=== PATIENT | male | born 1945 | race Caucasian/White ===

== ENCOUNTER 2024-10-09 09:26 | Outpatient (AMB) | payer MEDICARE, OTHER, SELFPAY ==
--- NOTE | 2024-10-09 09:31 | A.OFFVIS_ITS ---
Vital Signs 10/09/24 09:35 Height 5 ft 6 in Weight 202 lb BMI 32.6 BP 128/84 Blood Pressure Location Rt brachial Position Sitting Pulse 81 Pulse Source Pulse Oximeter Oxygen Delivery Method Room Air Oxygen Flow Rate 98 Intake Visit Reasons: ENP: Gait Intake Note: Patient referred for underlying movement disorder Allergies No Known Allergies Allergy (Verified 10/09/24 09:37) Medication List - Last Reconciled 10/09/24 by Emmy Vila MD allopurinol 300 mg PO DAILY aspirin 81 mg PO DAILY atorvastatin 20 mg PO DAILY carbidopa-levodopa 25-100 mg 2 tabs PO TID empagliflozin (Jardiance) 10 mg PO DAILY lisinopril mg PO metoprolol succinate ER 25 mg PO DAILY mirabegron ER (Myrbetriq) 50 mg PO DAILY tadalafil mg PO tamsulosin 0.8 mg PO DAILY vitamins A,C,G-wkya-zjrknl 4,296 mcg-226 mg-90 mg 1 cap PO BID HPI Comments Details: 79y/o Right handed male comes for evaluation of progressive gait problems, tremors in left leg , abnormal leg movements in sleep.He had right knee replacement 4 years ago and feels he never recovered fully . About 1 year ago he was admitted for sepsis - became weaker . His gait improved but did not reach baseline. He uses a walker now and has had falls in the past - last fall was Apr 2024. ( walking with a cane and fell when he turned ) He also has macular degeneration and is legally blind.No h/o neck or back pain No h/o strokes No head injury .He has h/o atrial fib since his 40s .He started noticing intermittent rare episodes of tremors in his legs ( mostly in left) and mostly at rest. He has vivid dreams , occasional grunting noise, sleep talks , leg movements in sleep.He has excessive daytime fatigue and sleepiness. No change in speech. His memory has mildly declined. He was seen by - started on sinemet 25/100 tid and now 2 tabs tid .He feels improvement in gait and tremors. 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, class 1 HTN (hypertension) Gout CAD (coronary artery disease) Community acquired pneumonia Cardiomyopathy BPH (benign prostatic hyperplasia) Afib Surgical History H/O heart surgery History of prostate surgery H/O knee surgery Hx of colonoscopy Family History Father Diabetes Stroke Mother Macular degeneration Arthritis of right hip Emphysema lung Brother Diabetes Alcoholic Son Anemia Daughter Anemia Social History Alcohol intake: current Comment: wine Patient Tobacco Use Status: Never used Tobacco Physical Exam Vital Signs: Last Vital Signs Pulse 81 10/09/24 09:35 BP 128/84 10/09/24 09:35 Oxygen Delivery Method Room Air 10/09/24 09:35 Oxygen Flow Rate 98 10/09/24 09:35 BMI result Body Mass Index 32.6 Const General: cooperative, healthy appearing, comfortable and no acute distress Nutritional Appearance: average body habitus Orientation/consciousness: patient oriented x3 Eyes Pupils: Equal, round and reactive pupils present Neuro Other: Mild decreased facial expressiona nd blink No tremors Bradykiensia FFM and foot taps decreased higinio Mild cog wheel rigidity - higinio UE Gait- kyphosis , small steps, decreased arm swings higinio General: patient oriented x3, moves all extremities and no focal motor deficits Cranial nerves: Yes Facial sensation intact/muscles of mastication intact, Yes Equal, round and reactive pupils present, Yes Bilaterally intact EOM present, Yes Nystagmus not present, Yes Normal facial strength present and Yes Midline tongue present Cognition (Neuro): normal cognition Motor exam (neuro): 5/5 motor strength present throughout Deep tendon reflexes (DTR's): Right triceps reflex intensity grade: 2+, Left triceps reflex intensity grade: 2+, Rt Biceps (C5, C6): 2+, Left biceps reflex intensity grade: 2+, Right brachioradialis reflex intensity grade: 2+, Left brachioradialis reflex intensity grade: 2+, Right patellar reflex intensity grade: 2+ and Left patellar reflex intensity grade: 2+ Coordination: [id number]-nz-[id number] test normal Assessment & Plan Assessment & Plan (1) Multifactorial gait disorder: Code(s): R26.89 - Other abnormalities of gait and mobility Category: Medical (2) Parkinsonism: Code(s): G20.C - Parkinsonism, unspecified Category: Medical Qualifiers: Parkinsonism type: unspecified Qualified Code(s): G20.C - Parkinsonism, unspecified (3) Snoring: Code(s): R06.83 - Snoring Category: Medical (4) Hypersomnia: Code(s): G47.10 - Hypersomnia, unspecified Category: Medical (5) Nocturnal leg movements: Code(s): R25.8 - Other abnormal involuntary movements Category: Medical Plan Suggested to continue Carbidopa/levodopa 2tabs tid Increase exercise Home PT for gait and balance training Home sleep study to evaluate for sleep apnea. Orders: Orders RT home sleep study 10/09/24 G47.10 - Hypersomnia, unspecified, R06.83 - Snoring, R25.8 - Other abnormal involuntary movements [facility]errals [facility] Referral G20.C - Parkinsonism, unspecified, R26.89 - Other abnormalities of gait and mobility, R29.6 - Repeated falls Coding Level of Care Code New Pt Level 4 (69114) Complex EM visit Add On G2211 Diagnoses Multifactorial gait disorder R26.89 Parkinsonism, unspecified Parkinsonism type G20.C Parkinsonism type: unspecified Snoring R06.83 Hypersomnia G47.10 Nocturnal leg movements R25.8
[2024-10-09 09:35] VITALS: BP 128/84; PULSE 81; BMI 32.6
--- OUTSIDE RECORDS SUMMARY | 2024-10-09 10:22 | XMS_ITS | Continuity of Care Document ---
Author Organization [facility] Address [address] [place] [address]- Care Team Providers Care Patient Scheduling Manager Name Role Phone Yuri Melchor MD Primary Care Physician [phone] Encounter [facility] Date(s): 09/04/24 - 10/04/24 [facility] [address] [place], [place] [address] Encounter Type: Triage Allergies, Adverse Reactions, Alerts No Known Allergies Immunizations Given and Recorded Vaccine Date Status Refusal Reason influenza virus vaccine, inactivated 05/08/24 Slade rded influenza virus vaccine, inactivated 04/17/22 Slade rded influenza virus vaccine, inactivated 04/17/20 Slade rded influenza virus vaccine, inactivated 05/21/18 Slade rded influenza virus vaccine, inactivated 06/14/17 Slade rded influenza virus vaccine, inactivated 04/18/16 Slade rded influenza virus vaccine, inactivated 05/29/15 Slade rded SARS-CoV-2(COVID-19)mRNA-LNP vac(shr754) 05/08/24 Recorded [id number] bivalent booster vax 04/17/22 Recorded SARS-CoV-2 (COVID-19) mRNA-1273 vaccine 11/05/21 R ecorded SARS-CoV-2 (COVID-19) mRNA-1273 vaccine 10/09/20 R ecorded SARS-CoV-2 (COVID-19) mRNA-1273 vaccine 09/11/20 R ecorded zoster vaccine, inactivated 07/20/18 Recorded zoster vaccine, inactivated 12/01/17 Recorded Hepatitis A Adult Vaccine 1 11/17/17 Given Hepatitis A Adult Vaccine 12/16/16 Given Typhoid Vaccine, Inactivated 12/16/16 Given FluLaval (oldterm) 06/07/09 Given Pneumococcal Vaccine (oldterm) 06/05/08 Given Influenza Virus Vaccine (oldterm) 2 06/05/08 Given tetanus-diphtheria toxoids (Td) 04/27/03 Given 1Result Comment: [11/17/2017] hep A #2 2Admin Note: SONOFI PASTEUR given without incident denies col symptoms, denies egg allergy Medications allopurinol 300 mg oral tablet 1, tablet, By Mouth, Daily, # 90 tablet, Refills 2, Maintenance, 12/25/23 10:07:00 PM EDT, Route to Pharmacy Electronically, [id number], 168, cm, 11/04/23 10:13:00 EDT, Height, 93.8, kg, 11/04/23 10:13:00 EDT, Dry Weight Start Date: 12/25/23 Status: Ordered Quantity: 90.0 Unit: tablet Repeat number: 1 aspirin 81 mg oral delayed release tablet 81 mg, 1, tablet, By Mouth, Daily, Refills 0, Maintenance, 11/19/20 6:17:00 AM EDT, Partial fill upon patient request if the prescription is for a schedule II opioid drug. Start Date: 11/19/20 Status: Ordered Repeat number: 1 atorvastatin 20 mg oral tablet 1 tablet = 20 mg, By Mouth, Daily, 0 Refills, Maintenance Start Date: 01/09/19 Status: Ordered Repeat number: 1 carbidopa-levodopa 25 mg-100 mg oral tablet 2 tablet, By Mouth, 3 times a day, # 180 tablet, 0 Refills, Maintenance, 05/02/24 10:46:00 AM EDT, Tablet, Partial fill upon patient request if the prescription is for a schedule II opioid drug. Start Date: 05/02/24 Status: Ordered Quantity: 180.0 Unit: tablet Repeat number: 1 ICaps AREDS 2 oral capsule 1 capsule, By Mouth, 2 times a day, Maintenance, 05/17/23 10:31:00 AM EDT, Capsule, Partial fill upon patient request if the prescription is for a schedule II opioid drug. Start Date: 05/17/23 Status: Ordered Repeat number: 1 Jardiance 10 mg oral tablet 1 tablet = 10 mg, By Mouth, Daily in AM, # 90 tablet, 3 Refills, Maintenance, 06/01/23 4:54:00 PM EDT, Tablet, [facility] #[id number], Partial fill upon patient request if the prescription is for a schedule II opioid drug., 168, cm, 05/21/23 9:12:00 EDT, Height, 96.2, kg, 05/17/23 19:40:00 EDT, Dry Weight Start Date: 06/01/23 Stop Date: 05/26/24 Status: Ordered Quantity: 90.0 Unit: tablet Repeat number: 4 lisinopril 2.5 mg oral tablet 2.5 mg, 1, tablet, By Mouth, Daily, # 90 tablet, Refills 3, Tot. Refills 3, Maintenance, 06/01/23 4:54:00 PM EDT, Route to Pharmacy Electronically, [facility] #[id number], Partial fill upon patient request if the prescription is for a schedule II opioid drug., 168, cm, 05/21/23 9:12:00 EDT, Height, 96.2, kg, 05/17/23 19:40:00 EDT, Dry Weight Start Date: 06/01/23 Stop Date: 05/26/24 Status: Ordered Quantity: 90.0 Unit: tablet Repeat number: 4 metoprolol 25 mg oral tablet, extended release 25 mg, 1, tablet, By Mouth, Daily, # 90 tablet, Refills 3, Tot. Refills 3, Maintenance, 06/30/24 11:54:00 AM EST, Route to Pharmacy Electronically, [facility] #[id number], Partial fill upon patient request if the prescription is for a schedule II opioid drug., 168, cm, 06/30/24 11:33:00 EST, Height, 91, kg, 06/30/24 11:33:00 EST, Dry Weight Start Date: 06/30/24 Status: Ordered Quantity: 90.0 Unit: tablet Repeat number: 4 Tadalafil (Eqv-Cialis) 20 mg oral tablet 1 tablet = 20 mg, By Mouth, Daily, PRN 60 min Prior to sexual activity, Maintenance, 05/17/23 10:29:00 AM EDT, Partial fill upon patient request if the prescription is for a schedule II opioid drug. Start Date: 05/17/23 Status: Ordered Repeat number: 1 tamsulosin 0.4 mg oral capsule 0.4 mg, 1, capsule, By Mouth, Daily, # 30 capsule, Refills 0, Maintenance, 06/05/24 9:22:00 AM EDT,Partial fill upon patient request if the prescription is for a schedule II opioid drug. Start Date: 06/05/24 Status: Ordered Quantity: 30.0 Unit: capsule Repeat number: 1 Problem List Condition Confirmation Course Effective Dates Status H ealth Status Informant Atrial fibrillation Confirmed Active Benign enlargement of prostate Confirmed Active Cardiomyopathy Confirmed Active Community acquired pneumonia Confirmed 05/2008 Active Coronary artery disease Confirmed Active Advice or immunization for travel Confirmed Active Fronto-temporal dementia Confirmed Active Gout Confirmed Active Hypertension Confirmed Active Presence of Watchman left atrial appendage closure device Confirmed Active Obese class I Confirmed Active Parkinsonism Confirmed Active Raynaud's phenomenon Confirmed Active Sensorineural hearing loss, bilateral Confirmed 2002 Active Social History Social History Type Response Smoking Status Never (less than 100 in lifetime) entered on: 05/07/23 Sex Sex Representation Male (finding) Patient Care team information Care Team Personnel Name: Opal Keller RN Position: [facility] RN Member Role: Primary Care Nurse Name: Yuri Melchor MD Position: [facility] Physician - Primary Care Member Role: PCP Address: [address] [place] [address] [facility] [address] Telecom: Name: Beth Rodriguez RN Position: [facility] RN Member Role: Primary Care Nurse Name: Chucky Timmons RN Position: [facility] RN Member Role: Primary Care Nurse Name: Chastity Velasco Position: [facility] Outreach Member Role: [employer] Consult[employer] Physician Name: Teresa De La Torre RN Position: [facility] RN Member Role: Primary Care Nurse Name: Michelle Malhotra RN Position: [facility] RN Member Role: Primary Care Nurse Care Team Related Persons Name: JEFF NEW Name: YONY NEW Name: YONY NEW Insurance Providers Guarantor name: FABIANO SHAQ Health Plan Information #: 1 Payer: MEDICARE PART B OUTPT Member Number: NA Policy Number: NA Group Number: NA Health Plan Information #: 2 Payer: [employer] Member Number: NA Policy Number: NA Group Number: NA
--- OUTSIDE RECORDS SUMMARY | 2024-10-09 10:22 | XMS_ITS | Clinical Summary ---
Author Organization [facility] Address [address] [place] [phone] Phone Care Team Providers Care Potato Peeler Name Role Phone Yuri Melchor MD Primary Care Provider [phone] Allergies No known active allergies Medications allopurinoL (ZYLOPRIM) 300 mg tablet Take 1 Tab by mouth daily. Active aspirin 81 mg EC tablet Take 1 Tab by mouth daily. Active atorvastatin (LIPITOR) 20 mg tablet TAKE 1 TABLET BY MOUTH DAILY 01/27/2024 Active carbidopa-levod opa (SINEMET) 25-100 mg per tablet Take 1 Tablet by mouth 3 times daily. Active empagliflozin (Jardiance) 10 mg tablet TAKE 1 TABLET BY MOUTH DAILY 10/05/2023 Active metoprolol succinate (TOPROL-XL) 25 mg 24 hr tablet Take 1 Tablet by mouth daily. Active spironolactone (ALDACTONE) 25 mg tablet Take 0.5 Tablets by mouth daily for 180 days. 04/25/2024 10/23/19 25 Active tadalafiL (CIALIS) 20 mg tablet Take 1 Tablet by mouth as needed. 60 mins prior to sexual activity Active lisinopriL (PRINIVIL,ZESTR IL) 2.5 mg tablet Take 1 Tablet by mouth daily for 180 days. - Oral Active vit A/vit C/vit E/zinc/copper (PRESERVISION AREDS ORAL) Take 1 Capsule by mouth. - Oral Active tamsulosin (FLOMAX) 0.4 mg 24 hr capsule Take 1 Capsule by mouth daily. - Oral Active Active Problems Problem Noted Date Diagnosed Date Hypotension 06/16/2024 Assessment & Plan (06/16/2024 9:50 AM EST): He is not orthostatic and a compressive stocking will be helpful. Suspect pressure drop was caused by Flomax. Suggest him to take medication prior to go to bed. He can have a discussion with his urologist. Cannot liberate salt intake due to heart failure. Ischemic cardiomyopathy 04/18/2024 Assessment & Plan (06/16/2024 9:48 AM EST): Not able to tolerate much medications due to lower BP. Heart failure 02/24/2024 Overview (06/05/2024): Last Assessment & Plan: Will continue Jardiance. Will add low-dose spironolactone 12.5 mg daily and increased to 25 mg daily in a few weeks. Assessment & Plan (06/16/2024 9:47 AM EST): Appears euvolemic by physical exam. Has been off diuretics due to lower BP. Will continue Jardiance at current dose. Sepsis 05/25/2023 Ventricular tachycardia 04/16/2021 Overview (06/05/2024): Last Assessment & Plan: Occurred post surgery. There was no evidence of ACS, or significant electrolyte abnormality. Stress test demonstrated no ischemia. Infarct region was same. He is on low-dose metoprolol due to tachybradycardia feature. I will arrange Holter monitor to reassess the heart rate and ventricular tachycardia. CAD (coronary artery disease) 10/08/2020 Overview (06/05/2024): Last Assessment & Plan: No angina symptoms. He appears to have infarct in inferolateral wall at some point in the past and RCA PCI did not improve perfusion defect. Will continue aspirin, statin, and beta-mariama. His lipid profile is at target. Assessment & Plan (06/16/2024 9:51 AM EST): He has no angina symptom. Will continue aspirin and statin. Cardiomyopathy 10/08/2020 Overview (06/05/2024): Last Assessment & Plan: Not able to tolerate much medications due to lower BP. Is on SLG 2 inhibitor. Continue minimal amount of lisinopril and beta-mariama. Will add low-dose spironolactone and reduce lisinopril to 5 mg daily. HTN (hypertension) 10/08/2020 Overview (06/05/2024): Last Assessment & Plan: Patient's blood pressure is well controlled. Will add in low-dose GULSHAN inhibitor for his cardiomyopathy and follow his labs in about a week's time Atrial fibrillation 07/19/2020 Overview (06/05/2024): Atrial fibrillation Last Assessment & Plan: Status post Watchman. Off anticoagulation. On low-dose beta-mariama. Assessment & Plan (06/16/2024 9:48 AM EST): Status post Watchman, has been off anticoagulation. Heart rate is controlled on low-dose metoprolol. Bradyarrhythmia 07/19/2020 Overview (06/05/2024): Bradyarrhythmia Encounters Date Type Department Care Team Description 07/11/2024 8:00 AM EST Treatment Physical Therapy - [place] [address] [place] [address] Crow Bello, PT Gait instability (Primary Dx) from Last 3 Months Medical History Medical History Date Comments Morbid obesity (CMS/HCC) DX:Morb id obesity (HCC) UTI (urinary tract infection) DX :UTI (urinary tract infection) Generalized weakness DX:Generali zed weakness BPH with urinary obstruction DX: BPH with urinary obstruction Chronic indwelling Pacheco catheter DX:Chronic indwelling Pacheco catheter Family History Medical History Relation Name Comments Stroke Father Relation Name Status Comments Father Social History Tobacco Use Types Packs/Day Years Used Date Smoking Tobacco: Never Smokeless Tobacco: Never Alcohol Use Standard Drinks/Week Comments Yes 1 (1 standard drink = 0.6 oz pur e alcohol) Sex and Gender Information Value Date Recorded Sex Assigned at Not on file Legal Sex Male 6:11 AM EST Gender Identity Not on file Sexual Orientation Not on file Obstetrics History Last Filed Vital Signs Vital Sign Reading Time Taken Comments Blood Pressure 96/67 07/11/2024 8:00 AM EST Pulse 73 07/11/2024 8:00 AM EST Temperature - - Respiratory Rate - - Oxygen Saturation 97% 07/11/2024 8:00 AM EST Inhaled Oxygen Concentration - - Weight 88.9 kg (196 lb) 06/16/2024 8:51 AM EST Height 167.6 cm (5' 6 ) 06/16/2024 8:51 AM EST Body Mass Index 31.64 06/16/2024 8:51 AM EST Plan of Treatment Health Maintenance Due Date Last Done Comments Diabetes: Annual Foot Exam 01/23/1955 Diabetes: Annual Retina Eye Exam 01/23/1954 Pneumococcal Vaccine: 50+ Years (2 of 2 - PCV) 06/05/2009 06/05/2008 Cholesterol Screening (Lipid Panel) 07/12/2022 Depression Screening 07/12/2022 Falls Risk Assessment 07/12/2022 Medicare Annual Wellness Visit 07/12/2022 Social Influencers of Health Screening 07/12/2022 Diabetes: Annual GFR (Glomerular Filtration Rate) 06/11/2024 06/11/2023 Hypertension/CHF/CAD Annual BMP Blood Test 06/11/2024 06/11/2023 Diabetes: Annual Urine Albumin-Creatinine Ratio (uACR) 07/11/2024 Diabetes: Blood Sugar Control Test (HGBA1C) 07/11/2024 DTaP,Tdap,and Td Vaccines (3 - Td or Tdap) 05/20/2031 05/20/2021, 04/27/2003 Hepatitis A Vaccines Aged Out 11/17/2017, 12/17/19 17 No longer eligible based on patient's age to complete this topic Zoster Vaccines Completed 07/20/2018, 12/01/2017 RSV Immunization Patients 60+ Years Old Completed 07/10/2023 COVID-19 Vaccine Completed 05/08/2024, , 04/17/2022, Additional history exists Influenza Vaccine Completed 05/08/2024, , 04/17/2022, Additional history exists HIB Vaccines Aged Out No longer eligi ble based on patient's age to complete this topic HPV Vaccines Aged Out No longer eligi ble based on patient's age to complete this topic Hepatitis B Vaccines Aged Out No long er eligible based on patient's age to complete this topic IPV Vaccines Aged Out No longer eligi ble based on patient's age to complete this topic MMR Vaccines Aged Out No longer eligi ble based on patient's age to complete this topic Meningococcal ACWY Vaccine Aged Out N o longer eligible based on patient's age to complete this topic Meningococcal B Vacine Aged Out No lo nger eligible based on patient's age to complete this topic RSV Immunization Patients Under 20 months Aged Out No longer eligible based on patient's age to complete this topic Varicella Vaccines Aged Out No longer eligible based on patient's age to complete this topic Procedures Procedure Name Priority Date/Time Associated Diagnosis Comments ANNUAL BMP BLOOD TEST Routine 06/11/2023 from Last 3 Months or Most Recently Relevant to Health Maintenance Results * Annual BMP Blood Test (06/11/2023) Annual BMP Blood Test Abstracted Historical Provider MD HEALTH MAINTENANCE Final Result from Last 3 Months or Most Recently Relevant to Health Maintenance Insurance MEDICARE [facility] Advance Directives Documents on File Type Date Recorded Patient Edge Cutting Machine Operator Expl anation Health Care Decision (hx) 01/30/2021 AD ELIZABETH DIRECTIVE Health Care Decision (hx) 01/30/2021 AD ELIZABETH DIRECTIVE Health Care Decision (hx) 01/30/2021 AD ELIZABETH DIRECTIVE Health Care Decision (hx) 01/30/2021 AD ELIZABETH DIRECTIVE Health Care Decision (hx) 01/30/2021 AD ELIZABETH DIRECTIVE Health Care Decision (hx) 01/30/2021 AD ELIZABETH DIRECTIVE Health Care Decision (hx) 01/30/2021 AD ELIZABETH DIRECTIVE Health Care Decision (hx) 01/30/2021 AD ELIZABETH DIRECTIVE Health Care Decision (hx) 01/30/2021 AD ELIZABETH DIRECTIVE Health Care Decision (hx) 01/30/2021 AD ELIZABETH DIRECTIVE Health Care Decision (hx) 01/30/2021 AD ELIZABETH DIRECTIVE Health Care Decision (hx) 01/30/2021 AD ELIZABETH DIRECTIVE Health Care Decision (hx) 01/30/2021 AD ELIZABETH DIRECTIVE Health Care Decision (hx) 01/30/2021 AD ELIZABETH DIRECTIVE Health Care Decision (hx) 01/30/2021 AD ELIZABETH DIRECTIVE Health Care Decision (hx) 01/30/2021 AD ELIZABETH DIRECTIVE Health Care Decision (hx) 01/30/2021 AD ELIZABETH DIRECTIVE Health Care Decision (hx) 01/30/2021 AD ELIZABETH DIRECTIVE Health Care Decision (hx) 01/30/2021 AD ELIZABETH DIRECTIVE Health Care Decision (hx) 01/30/2021 AD ELIZABETH DIRECTIVE Health Care Decision (hx) 01/30/2021 AD ELIZABETH DIRECTIVE Health Care Decision (hx) 01/30/2021 AD ELIZABETH DIRECTIVE Health Care Decision (hx) 01/30/2021 AD ELIZABETH DIRECTIVE Health Care Decision (hx) 01/30/2021 AD ELIZABETH DIRECTIVE Health Care Decision (hx) 01/30/2021 AD ELIZABETH DIRECTIVE Health Care Decision (hx) 01/30/2021 AD ELIZABETH DIRECTIVE Health Care Decision (hx) 01/30/2021 AD ELIZABETH DIRECTIVE Health Care Decision (hx) 01/30/2021 AD ELIZABETH DIRECTIVE Health Care Decision (hx) 01/30/2021 AD ELIZABETH DIRECTIVE Health Care Decision (hx) 01/30/2021 AD ELIZABETH DIRECTIVE Health Care Decision (hx) 01/30/2021 AD ELIZABETH DIRECTIVE Health Care Decision (hx) 01/30/2021 AD ELIZABETH DIRECTIVE Health Care Decision (hx) 01/30/2021 AD ELIZABETH DIRECTIVE Care Teams Potato Peeler Relationship Specialty Start Date End Date Yuri Melchor MD [address] [address] PCP - General Internal Medicine 06/03/24
--- OUTSIDE RECORDS SUMMARY | 2024-10-09 10:22 | XMS_ITS | Encounter Summary ---
Author Organization [facility] Address [address] [place] [address] Care Team Providers Care Fast Food Team Member Name Role Phone Yuri Melchor MD Primary Care Provider [phone] Encounter Details Date Type Department Care Team ([facility] st Contact Info) Description 05/12/2024 9:30 AM EDT Hospital Encounter TH [facility] ONLY Yuri Melchor MD [address] [phone] Social History Tobacco Use Types Packs/Day Years [...] as of this encounter Plan of Treatment Not on file documented as of this encounter Visit Diagnoses Not on filedocumented in this encounter Care Teams Fast Food Team Member Relationship Specialty Start Date End Date Yuri Melchor MD [address] [phone] PCP - General 11/17/22 06/02/24 documented as of this encounter
== END 2024-10-09 10:39 | disposition home or self-care (01) ==
PROVIDERS: PCP Internal Medicine; Visit Provider Psychiatry & Neurology Neurology
DX: R26.89 Other abnormalities of gait and mobility (principal); G20.C Parkinsonism, unspecified; R06.83 Snoring; G47.10 Hypersomnia, unspecified; R25.8 Other abnormal involuntary movements
CPT/HCPCS: 99204; G2211

== ENCOUNTER → 2024-10-09 09:26 | Outpatient (BNVA) | payer MEDICARE, OTHER, SELFPAY | PROVIDERS: PCP Internal Medicine; Visit Provider Psychiatry & Neurology Neurology | DX: R26.89 Other abnormalities of gait and mobility (principal); R26.9 Unspecified abnormalities of gait and mobility; G20.C Parkinsonism, unspecified; R06.83 Snoring; G47.10 Hypersomnia, unspecified | CPT/HCPCS: 99202 ==

== ENCOUNTER → 2024-12-13 12:41 | Outpatient (REF) | payer MEDICARE, OTHER, SELFPAY ==
--- OUTSIDE RECORDS SUMMARY | 2024-12-13 13:45 | XMS_ITS | Clinical Summary ---
Author Organization [address] [place] [address] [place] [phone] Phone Care Team Providers Care Plastics Process Hand Name Role Phone Yuri Melchor MD Primary Care Provider [phone] Allergies No known active allergies Medications allopurinoL [...] by mouth daily for 180 days. 04/25/2024 Active tadalafiL (CIALIS) 20 mg tablet Take [...] medications due to lower BP. Heart failure (CMS/HCC V24, CMS/HCC V28) 024 Overview (06/05/2024): Last Assessment & Plan: Will continue Jardiance. Will add low-dose spironolactone 12.5 mg daily and increased to 25 mg daily in a few weeks. Assessment & Plan (06/16/2024 9:47 AM EST): Appears euvolemic by physical exam. Has been off diuretics due to lower BP. Will continue Jardiance at current dose. Sepsis (CMS/HCC V24, CMS/HCC V28) 05/25/2023 Ventricular tachycardia (CMS/HCC V24, CMS/HCC V2 8) 04/16/2021 Overview (06/05/2024): Last Assessment & Plan: [...] symptom. Will continue aspirin and statin. Cardiomyopathy ([facility] V24, [facility] V28) 2020 Overview (06/05/2024): Last Assessment & Plan: Not [...] in about a week's time Atrial fibrillation ([facility] V24, [facility] V28) 1 09/19/2019 Overview (06/05/2024): Atrial fibrillation Last Assessment & Plan: Status post Watchman. Off anticoagulation. On low-dose beta-mariama. Assessment & Plan (06/16/2024 9:48 AM EST): Status post Watchman, has been off anticoagulation. Heart rate is controlled on low-dose metoprolol. Bradyarrhythmia 07/19/2020 Overview (06/05/2024): Bradyarrhythmia Medical History Medical History Date Comments Morbid obesity ([facility] V24, [facility] V28) DX:Morbid obesity (HCC) UTI (urinary tract infection) DX [...] 06/16/2024 8:51 AM EST Plan of Treatment Upcoming Encounters Date Type Department Care Team (Late st Contact Info) Description 05/24/2025 8:50 AM EDT Office Visit [facility] [address] [facility] [address] [place] [address] Mac Oliveros MD [address] [facility] [address] [place] [address] Health Maintenance Due Date Last Done Comments [...] Diabetes: Blood Sugar Control Test (HGBA1C) 07/11/2024 COVID-19 Vaccine ( season) 2024 05/08/2024, 06/22/2023, 04/17/2022, Additional history exists DTaP,Tdap,and Td Vaccines (3 - Td or Tdap) 05/20/2031 05/20/2021, 04/27/2003 Hepatitis A Vaccines Aged Out 11/17/2017, 12/17/19 17 No longer eligible based on patient's age to complete this topic Zoster Vaccines Completed 07/20/2018, 12/01/2017 RSV Immunization Adult Patients Completed 07/10/2023 Influenza Vaccine Completed 05/08/2024, , 04/17/2022, Additional [...] age to complete this topic Meningococcal B Vaccine Aged Out No l onger eligible based on patient's age to complete [...] Test (06/11/2023) Annual BMP Blood Test Abstracted us Historical Provider MD HEALTH MAINTENANCE Final Result from Last 3 Months or Most Recently Relevant to Health Maintenance Insurance MEDICARE [facility] Advance Directives Documents on File Type Date Recorded Patient Relationship Mgr Expl anation Health Care Decision (hx) 01/30/2021 [...] (hx) 01/30/2021 AD ELIZABETH DIRECTIVE Care Teams Plastics Process Hand Relationship Specialty Start Date End Date Yuri Melchor MD [address] [phone] PCP - General Internal Medicine 06/03/24
--- OUTSIDE RECORDS SUMMARY | 2024-12-13 13:45 | XMS_ITS | Encounter Summary ---
Author Organization [facility] [place] [address] Care Team Providers Care Public Address Servicer Name Role Phone Yuri Melchor MD Primary Care Provider [phone] Encounter Details Date Type Department Care Team (Late st Contact Info) Description 05/12/2024 9:30 AM EDT Hospital Encounter [facility] ONLY Yuri Melchor MD [address] [facility] [address] [place] [address] Social History Tobacco Use Types Packs/Day Years [...] Encounters Date Type Department Care Team (Late Contact Info) Description 05/24/2025 8:50 AM EDT Office Visit [facility] - [facility] [address] [facility] [address] [place] [phone] Mac Oliveros MD 300 [facility] [address] [place] [address] documented as of this encounter Visit Diagnoses Not on filedocumented in this encounter Care Teams Public Address Servicer Relationship Specialty Start Date End Date Yuri Melchor MD [facility] [address] [address] PCP - General 11/17/22 06/02/24 documented as of this encounter
== END ==
LOC: HO.SL 12:41
PROVIDERS: PCP Internal Medicine; Visit Provider Psychiatry & Neurology Neurology
DX: G47.10 Hypersomnia, unspecified (principal); R06.83 Snoring; R25.8 Other abnormal involuntary movements
CPT/HCPCS: 95806

== ENCOUNTER → 2024-12-13 13:05 | Outpatient (BNV) | payer MEDICARE, OTHER, SELFPAY | PROVIDERS: PCP Internal Medicine; Visit Provider Psychiatry & Neurology Neurology | DX: R06.83 Snoring (principal) | CPT/HCPCS: 95806 ==

== ENCOUNTER → 2025-01-09 20:30 | Outpatient (REF) | payer MEDICARE, OTHER, SELFPAY | LOC: HO.SL 20:30 | PROVIDERS: PCP Internal Medicine; Visit Provider Psychiatry & Neurology Neurology | DX: R06.83 Snoring (principal); G47.10 Hypersomnia, unspecified; G25.81 Restless legs syndrome; G47.61 Periodic limb movement disorder | CPT/HCPCS: 95810 ==

== ENCOUNTER → 2025-01-09 23:32 | Outpatient (BNV) | payer MEDICARE, OTHER, SELFPAY | PROVIDERS: PCP Internal Medicine; Visit Provider Psychiatry & Neurology Neurology | DX: R06.83 Snoring (principal) | CPT/HCPCS: 95810 ==

== ENCOUNTER → 2025-02-26 23:59 | Outpatient (BNV) | payer MEDICARE, OTHER, SELFPAY | PROVIDERS: PCP Internal Medicine; Visit Provider Psychiatry & Neurology Neurology | DX: G20.C Parkinsonism, unspecified (principal); R26.2 Difficulty in walking, not elsewhere classified; H54.8 Legal blindness, as defined in USA | CPT/HCPCS: G0179 ==

== ENCOUNTER 2025-04-16 09:23 | Outpatient (AMB) | payer MEDICARE, OTHER, SELFPAY ==
--- OUTSIDE RECORDS SUMMARY | 2024-05-12 09:30 | XMS_ITS | Encounter Summary ---
Author Organization [facility] [place] [address] Care Team Providers Care Basin Operator Name Role Phone Yuri Melchor MD Primary Care Provider [phone] Encounter Details Date Type Department Care Team (Late st Contact Info) Description 05/12/2024 9:30 AM EDT Hospital Encounter TH HISTORIC ENCOUNTERS [facility] ONLY Yuri Melchor MD [address] [facility] [address] [place] [address] Social History Tobacco Use Types Packs/Day Years Used Date Smoking Tobacco: Never Smokeless Tobacco: Never Alcohol Use Standard Drinks/Week Comments Yes 1 (1 standard drink = 0.6 oz pur e alcohol) Sex and Gender Information Value Date Recorded Sex Assigned at Not on file Legal Sex Male 6:11 AM EST Gender Identity Not on file Sexual Orientation Not on file documented as of this encounter Plan of Treatment Upcoming Encounters Date Type Department Care Team (Late st Contact Info) Description 05/24/2025 8:50 AM EDT Office Visit [facility] [address] [facility] [address] [place] [id number] Mac Oliveros MD [address] [place] [address] [place] [address] documented as of this encounter Visit Diagnoses Not on filedocumented in this encounter Care Teams Basin Operator Relationship Specialty Start Date End Date Yuri Melchor MD [facility] [address] [id number] PCP - General 11/17/22 06/02/24 documented as of this encounter
--- NOTE | 2025-04-16 09:30 | MHC.OFFVIS ---
Vital Signs 04/16/25 09:31 Height 5 ft 6 in Weight 203 lb BMI 32.8 BP 128/70 Blood Pressure Location Rt brachial Position Sitting Pulse 62 Pulse Source Pulse Oximeter Pulse Oximetry (%) 100 Oxygen Delivery Method Room Air Intake Visit Reasons: 6 mnts f/u appt Intake Note: Follow up Parkinsonism, gait disorder and hypersomnia Bag Machine Set Up Operator Required: No Accompanied by: Spouse Allergies No Known Allergies Allergy (Verified 04/16/25 09:34) Medication List - Last Reconciled 04/16/25 by Emmy Vila MD allopurinol 300 mg PO DAILY aspirin 81 mg PO DAILY atorvastatin 20 mg PO DAILY carbidopa-levodopa 25-100 mg 2 tab qam q noon and 1 tab qhs orally 3 times a day; 90 days empagliflozin (Jardiance) 10 mg PO DAILY metoprolol succinate ER 25 mg PO DAILY quetiapine 25 mg PO .q 5 pm tamsulosin 0.8 mg PO DAILY vitamins A,C,O-eikm-cjengy 4,296 mcg-226 mg-90 mg 1 cap PO BID HPI Comments Details: 80y/o Right handed male comes for f/u of progressive gait problems, tremors in left leg , abnormal leg movements in sleep.He reports visual hallucinations more at night. He started having formed visual hallucinations more in the evenings History from initial visit-He had right knee replacement 4 years ago and feels he never recovered fully . About 1 year ago he was admitted for sepsis - became weaker . His gait improved but did not reach baseline. He uses a walker now and has had falls in the past - last fall was Apr 2024. ( walking with a cane and fell when he turned ) He also has macular degeneration and is legally blind.No h/o neck or back pain No h/o strokes No head injury .He has h/o atrial fib since his 40s .He started noticing intermittent rare episodes of tremors in his legs ( mostly in left) and mostly at rest. He has vivid dreams , occasional grunting noise, sleep talks , leg movements in sleep.He has excessive daytime fatigue and sleepiness. No change in speech. His memory has mildly declined. He was seen by - started on sinemet 25/100 tid and now 2 tabs tid .He feels improvement in gait and tremors. 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 Raynauds phenomenon Presence of Watchman left atrial appendage closure device Obesity, class 1 HTN (hypertension) Gout CAD (coronary artery disease) Community acquired pneumonia Cardiomyopathy BPH (benign prostatic hyperplasia) Afib Surgical History H/O heart surgery History of prostate surgery H/O knee surgery Hx of colonoscopy Family History Father Diabetes Stroke Mother Macular degeneration Arthritis of right hip Emphysema lung Brother Diabetes Alcoholic Son Anemia Daughter Anemia Social History Alcohol intake: current Comment: wine Patient Tobacco Use Status: Never used Tobacco Physical Exam Vital Signs: Last Vital Signs Pulse 62 04/16/25 09:31 BP 128/70 04/16/25 09:31 Pulse Ox 100 04/16/25 09:31 Oxygen Delivery Method Room Air 04/16/25 09:31 BMI result Body Mass Index 32.8 Const General: cooperative, healthy appearing, comfortable and no acute distress Nutritional Appearance: average body habitus Orientation/consciousness: patient oriented x3 Eyes Pupils: Equal, round and reactive pupils present Neuro Other: Mild decreased facial expressiona nd blink No tremors Bradykinesia FFM and foot taps decreased higinio Mild cog wheel rigidity - higinio UE Gait- kyphosis , small steps, decreased arm swings higinio General: patient oriented x3, moves all extremities and no focal motor deficits Cranial nerves: Yes Facial sensation intact/muscles of mastication intact, Yes Equal, round and reactive pupils present, Yes Bilaterally intact EOM present, Yes Nystagmus not present, Yes Normal facial strength present and Yes Midline tongue present Cognition (Neuro): normal cognition Motor exam (neuro): 5/5 motor strength present throughout Coordination: [id number]-yw-[id number] test normal Assessment & Plan Assessment & Plan (1) Multifactorial gait disorder: Code(s): R26.89 - Other abnormalities of gait and mobility Category: Medical (2) Parkinsonism: Code(s): G20.C - Parkinsonism, unspecified Category: Medical Qualifiers: Parkinsonism type: unspecified Qualified Code(s): G20.C - Parkinsonism, unspecified (3) Snoring: Code(s): R06.83 - Snoring Category: Medical Plan Decrease Carbidopa/levodopa 25/100 2tabs bid and 1 tab qhs Increase quetiapine 25 mg q 5 pm Increase exercise Home PT for gait and balance training - helped PSG no evidence of sleep study Medications: Changed From carbidopa-levodopa 25-100 mg 2 tabs PO TID 90 days 540 tabs 0RF G20.C - Parkinsonism, unspecified To carbidopa-levodopa 25-100 mg 2 tab qam q noon and 1 tab qhs orally 3 times a day; 540 tabs 0RF 90 days G20.C - Parkinsonism, unspecified From quetiapine 12.5 mg (1/2 x 25 mg) PO .q 5 pm 15 tabs 1RF To quetiapine 25 mg PO .q 5 pm 30 tabs 1RF Coding Level of Care Code Est Pt Level 4 (87750) Diagnoses Multifactorial gait disorder R26.89 Parkinsonism, unspecified Parkinsonism type G20.C Parkinsonism type: unspecified Snoring R06.83
[2025-04-16 09:31] VITALS: BP 128/70; PULSE 62; O2SAT 100; BMI 32.8
--- OUTSIDE RECORDS SUMMARY | 2025-04-16 10:35 | XMS_ITS | Clinical Summary ---
Author Organization [facility] Address [address] [place] [address] Phone Care Team Providers Care Director Education Name Role Phone Yuri Melchor MD Primary Care Provider [phone] Allergies No known active allergies Medications allopurinol (ZYLOPRIM) 300 MG tablet Take 300 mg by mouth daily. Active aspirin 81 mg chewable tablet Take 81 mg by mouth daily. Active atorvastatin (LIPITOR) 20 MG tablet Take 20 mg by mouth daily. Active clopidogrel (PLAVIX) 75 mg tablet Take 75 mg by mouth daily. Pt stopped 06/11/23 Active vitamins A,C,E-zinc-kaden er (PRESERVISION AREDS) 4,296 mcg-226 mg-90 mg Cap Take 1 capsule by mouth 2 (two) times a day with meals. Active empagliflozin (JARDIANCE) 10 mg tablet Take 10 mg by mouth daily. Active lisinopril (PRINIVIL,ZESTR IL) 2.5 MG tablet Take 2.5 mg by mouth daily. Active metoprolol tartrate (LOPRESSOR) 25 MG tablet Take 25 mg by mouth 2 (two) times a day. Active phenazopyridine (PYRIDIUM) 200 MG tablet Take 1 tablet (200 mg total) by mouth 3 (three) times a day as needed for pain (specific location in comments). 10 tablet 06/17/2023 Active tamsulosin (FLOMAX) 0.4 mg Cap Take 1 capsule (0.4 mg total) by mouth daily. Take after dinner. 90 capsule 4 05/15/2024 Active Active Problems No known active problems Social History Tobacco Use Types Packs/Day Years Used Date Smoking Tobacco: Never Comments:none Alcohol Use Standard Drinks/Week Comments Yes 7 (1 standard drink = 0.6 oz pur e alcohol) wine at dinner Education Answer Date Recorded Are you interested in more education? Not on benjamin e 12/05/2022 Are you concerned about learning? Not on file 12/05/2022 No 12/05/2022 No 12/05/2022 Digital Access Answer Date Recorded No 01/05/2023 No 01/05/2023 Reliable internet access at home? Not on file 01/05/2023 Device with a working camera? Not on file Intimate Partner Violence Answer Date R ecorded Are you denied basic needs s uch as food, clothing, or medical care? No 06/17/2023 In the past 12 months have y ou been in a relationship with a person who hurts, threatens, or tries to control you? No 06/17/2023 Are you denied basic needs s uch as food, clothing, or medical care? No 06/17/2023 In the past 12 months have y ou been in a relationship with a person who hurts, threatens, or tries to control you? No 06/17/2023 Sex and Gender Information Value Date Recorded Sex Assigned at Not on file Legal Sex Male 10:05 AM EDT Gender Identity Not on file Sexual Orientation Not on file Last Filed Vital Signs Vital Sign Reading Time Taken Comments Blood Pressure 109/68 06/17/2023 7:00 PM EST Pulse 112 06/17/2023 5:30 PM EST Temperature 36.1 C (97 F) 06/17/2023 6:45 PM EST Respiratory Rate 18 06/17/2023 6:45 PM EST Oxygen Saturation 97% 06/17/2023 7:00 PM EST Inhaled Oxygen Concentration - - Weight 93 kg (205 lb) 06/17/2023 12:35 PM EST Height 167.6 cm (5' 6 ) 06/17/2023 12:35 PM EST Body Mass Index 33.09 06/17/2023 12:35 PM EST Plan of Treatment Upcoming Encounters Date Type Department Care Team (Late st Contact Info) Description 05/22/2025 1:40 PM EDT [place]icine [facility] [place] [address] [facility] 5th Floor, [address] [place] [address] Mohit Norman PA-C [address] [address] [email or web address] Health Maintenance Due Date Last Done Comments DEPRESSION SCREENING 1957 PNEUMOCOCCAL VACCINES (50+ years) (2 of 2 - PCV) 06/05/2009 06/05/2008 Adult Td,Tdap Booster 04/27/2013 04/27/2003 RSV VACCINE (1 - 1-dose 75+ series) 01/23/2019 CREATININE LEVEL 06/11/2024 06/11/2023 POTASSIUM LEVEL 06/11/2024 06/11/2023 INFLUENZA VACCINE (#1) 2025 , 04/17/2020, 05/21/2018, Additional history exists COVID-19 VACCINE ( season) 2025 04/17/2022, 11/05/2021, 10/09/2020, Additional history exists HEPATITIS A VACCINES Aged Out 11/17/2017, 12/17/19 17 No longer eligible based on patient's age to complete this topic ZOSTER VACCINES Completed 07/20/2018, 12/01/2017 HIB VACCINES Aged Out No longer eligi ble based on patient's age to complete this topic MENINGOCOCCAL VACCINES (ACWY) Aged Out No longer eligible based on patient's age to complete this topic MENINGOCOCCAL VACCINES (B) Aged Out N o longer eligible based on patient's age to complete this topic Medical Devices Implanted Type Area Gunnery/Ordnance Officer Device Identifier Shelf Expiration Date Model / Serial / Lot Prosthetic Joint Prosthetic Joint Right: Knee Stent Stent Heart Watchman Heart Procedures Procedure Name Priority Date/Time Associated Diagnosis Comments BASIC METABOLIC PANEL Routine 06/11/2023 1:01 PM EDT Pre-op evaluation Lower urinary tract symptoms (LUTS) from Last 3 Months or Most Recently Relevant to Health Maintenance Results * (ABNORMAL) Basic metabolic panel (06/11/2023 1:01 PM EDT) SODIUM 139 135 - 145 mmol/L [facility] POTASSIUM 4.2 3.4 - 5.0 mmol/L [facility] CHLORIDE 104 98 - 108 mmol/L [facility] CO2 23 23 - 32 mmol/L [facility] BUN 27(H) 8 - 25 mg/dL [facility] CREATININE 1.11 0.60 - 1.50 mg/dL [facility] GLUCOSE 93 70 - 110 mg/dL [facility] CALCIUM 8.9 8.5 - 10.5 mg/dL [facility] EGFR 68 >59 mL/min/1.7 3m2 [facility] Comment:Estimated glomerular filtration rate calculated using the CKD-EPI refit equation. ANION GAP 12 3 - 17 mmol/L [facility] 06/11/2023 1:01 PM EDT 06/11/2023 4:36 PM EDT Jose M Moore PA-C LAB BLOOD ORDERABLES Final Result [address] [id number] from Last 3 Months or Most Recently Relevant to Health Maintenance Insurance MEDICARE PART A & B MEDICARE PART A & B MEDICARE ENHANCE SUPPLEMENT MEDICARE PART A & B [facility] MEDICARE ENHANCE SUPPLEMENT MEDICARE PART A & B MEDICARE PART A & B MEDICARE PART A & B [facility] MEDICARE ENHANCE SUPPLEMENT MEDICARE PART A & B [facility] MEDICARE ENHANCE SUPPLEMENT MEDICARE PART A & B [facility] MEDICARE ENHANCE SUPPLEMENT MEDICARE PART A & B [facility] MEDICARE ENHANCE SUPPLEMENT Care Teams Director Education Relationship Specialty [place] [address] [place] [address] PCP - General Internal Medicine 05/19/23 Additional Source Comments The information contained in this document represents components of the legal health record. It is not the complete legal health record.[facility]
--- OUTSIDE RECORDS SUMMARY | 2025-04-16 10:35 | XMS_ITS | Encounter Summary ---
Author Organization [facility] Address [address] [place] [address] Phone Care Team Providers Care Aircraft Instrument Mechanic Name Role Phone Yuri Melchor MD Primary Care Provider Encounter Details Date Type Department Care Team (Late st Contact Info) Description 06/15/2023 Procedure Pass [facility] [place] PERIOPER[place]IVE DEPT [address] [place] [address] Social History Tobacco Use Types Packs/Day Years [...] Info) Description 05/22/2025 1:40 PM EDT Telemedicine [facility] [place] Department of Urology [address] [facility] [address]th [facility], [address] [place] [address] Mohit Norman, PABeatriceC [address] [address] [email or web address] documented as of this encounter Visit Diagnoses Not on filedocumented in this encounter Care Teams Aircraft Instrument Mechanic Relationship Specialty Start Date End Date Yuri Melchor MD [address] [address] PCP - General Internal Medicine 05/19/23 documented as of this encounter Additional Source Comments The information contained in this document represents components of the legal health record. It is not the complete legal health record.[facility]
--- OUTSIDE RECORDS SUMMARY | 2025-04-16 10:35 | XMS_ITS | Encounter Summary ---
Author Organization [facility] [place] [address] Care Team Providers Care Road Manager Name Role Phone Yuri Melchor MD Primary Care Provider [phone] Encounter Details Date Type Department Care Team (Late Contact Info) Description 12/29/2024 Lab Requisition [facility] [address] [facility] [facility] [address] [facility] [place] [address] Harmeet Bautista MD [address] [facility] [address] [place] [address] Benign prostatic hyperplasia with lower urinary tract symptoms Social History Tobacco Use Types Packs/Day Years [...] Upcoming Encounters Date Type Department Care Team ([facility] Contact Info) Description 05/24/2025 8:50 AM EDT Office Visit [facility] - [facility] [address] [facility] [address] [place] [address] Mac Oliveros MD [address] [place] [address] [place] [address] documented as of this encounter Procedures Procedure Name Priority Date/Time Associated Diagnosis Comments PROSTATE SPECIFIC ANTIGEN DIAGNOSTIC Routine 12/29/2024 9:56 AM EDT Benign prostatic hyperplasia with lower urinary tract symptoms documented in this encounter Results * Prostate specific antigen diagnostic (12/29/2024 9:56 AM EDT) PSA 2.00 0.00 - 4.00 ng/mL LAB CHEMISTRY METHOD 12/29/2024 3:[address] [facility] Blood Venous blood specimen / Unknown 12/29/2024 9:56 AM EDT 12/29/2024 1:[address] [facility] - 12/29/2024 3:11 PM EDT The Siemens [employer] Chemiluminescent Immunoassay is used. Results obtained with different assay methods or kits cannot be used interchangeably. Results cannot be interpreted as absolute evidence of the presence or absence of malignant disease. us Harmeet Bautista MD LAB BLOOD ORDERABLES Final Resul t [facility] [address] [place] [address], documented in this encounter Visit Diagnoses Diagnosis Benign prostatic hyperplasia with lower urinary tract symptoms documented in this encounter Care Teams Road Manager Relationship Specialty Start Date End Date Yuri Melchor MD [address] [place] [phone] PCP - General Internal Medicine 06/03/24 documented as of this encounter
--- OUTSIDE RECORDS SUMMARY | 2025-04-16 10:35 | XMS_ITS | Clinical Summary ---
Author Organization [address] [place] [address] [place] [phone] Phone Care Team Providers Care Wood Tile Installation Helper Name Role Phone Yuri Melchor MD Primary Care Provider [phone] Allergies No known active allergies Medications allopurinoL (ZYLOPRIM) 300 mg tablet Take 1 Tab by mouth daily. Active aspirin 81 mg EC tablet Take 1 Tab by mouth daily. Active carbidopa-levod opa (SINEMET) 25-100 mg per tablet Take 1 Tablet by mouth 3 times daily. Active metoprolol succinate (TOPROL-XL) 25 mg 24 hr tablet Take 1 Tablet by mouth daily. Active vit A/vit C/vit E/zinc/copper (PRESERVISION AREDS ORAL) Take 1 Capsule by mouth. - Oral Active tamsulosin (FLOMAX) 0.4 mg 24 hr capsule Take 1 Capsule by mouth daily. - Oral Active atorvastatin (LIPITOR) 20 mg tablet TAKE 1 TABLET BY MOUTH DAILY 90 tablet 1 01/22/2025 Active empagliflozin (Jardiance) 10 mg tablet TAKE 1 TABLET BY MOUTH DAILY 30 tablet 5 2025 Active QUEtiapine (SEROquel) 25 mg tablet Take 0.5 tablets (12.5 mg total) by mouth at bedtime. 02/19/2025 Active Active Problems Problem Noted Date Diagnosed Date Hypotension 06/16/2024 Assessment & Plan (02/22/2025 3:15 PM EDT): I suspect his occasional lower blood pressure readings in the morning are related to medications including carbidopa-levodopa, quetiapine and tamsulosin taken at night. Hopefully discontinuing lisinopril will allow him to tolerate these medications better. He can continue to monitor through the weekend since this morning was the first time he did not have the lisinopril. If he continues to experience lower blood pressure readings in the morning I recommended discussing whether or not he needs to continue with the tamsulosin and suggested he contact his urologist to discuss. I also recommend discussing his carbidopa-levodopa and quetiapine with his neurologist. I encouraged the use of compression socks and continue with lifestyle modification such as taking position changes slowly, pumping legs/arms before standing and maintaining adequate hydration. I asked him to contact the office early next week if symptoms have not improved. Assessment & Plan (06/16/2024 9:50 AM EST): [...] in a few weeks. Assessment & Plan (02/22/2025 3:07 PM EDT): Aside from some slight right ankle edema he appears euvolemic on physical exam. He has not had diuretics due to lower blood pressures. Patient is encouraged to follow a low-sodium, heart healthy diet, monitor daily weights and contact provider with any sudden increases such as 2 lbs overnight or 4-5 lbs over the course of a week, and/or for worsening shortness of breath and/or increased lower extremity edema. Assessment & Plan (06/16/2024 9:47 AM EST): [...] profile is at target. Assessment & Plan (02/22/2025 3:05 PM EDT): Patient denies symptoms of coronary insufficiency. Continue on aspirin and atorvastatin as prescribed. Assessment & Plan (06/16/2024 9:51 AM EST): He has no angina symptom. Will continue aspirin and statin. Cardiomyopathy (CMS/[facility] V24, CMS/[facility] V28) 2020 Overview (06/05/2024): Last Assessment & Plan: Not able to tolerate much medications due to lower BP. Is on SLG 2 inhibitor. Continue minimal amount of lisinopril and beta-mariama. Will add low-dose spironolactone and reduce lisinopril to 5 mg daily. Assessment & Plan (02/22/2025 3:07 PM EDT): History of ischemic cardiomyopathy, cardiac catheterization in January 2019 revealed 80% stenosis of his proximal RCA and he received a drug-eluting stent. GDMT has been limited due to symptomatic low blood pressures. Lisinopril and spironolactone have been stopped. He will continue on Jardiance and metoprolol as prescribed. HTN (hypertension) 10/08/2020 Overview (06/05/2024): Last Assessment & Plan: Patient's blood pressure is well controlled. Will add in low-dose GULSHAN inhibitor for his cardiomyopathy and follow his labs in about a week's time Assessment & Plan (02/22/2025 3:09 PM EDT): Blood pressure is well-controlled in the office today at 122/64. He has stopped lisinopril due to symptomatic low blood pressures. He will continue on metoprolol as prescribed. Atrial fibrillation (CMS/HCC V24, CMS/HCC V28) 1 09/19/2019 Overview (06/05/2024): Atrial fibrillation Last Assessment & Plan: Status post Watchman. Off anticoagulation. On low-dose beta-mariama. Assessment & Plan (02/22/2025 3:16 PM EDT): EKG done in the office today shows atrial fibrillation with a well-controlled rate of 74 bpm. He is not on anticoagulation due to significant fall risk, status post Watchman procedure. No change to current medical therapy, continue metoprolol as prescribed. Assessment & Plan (06/16/2024 9:48 AM EST): Status post Watchman, has been off anticoagulation. Heart rate is controlled on low-dose metoprolol. 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; Cardiomyopathy, unspecified type (CMS/HCC V24, CMS/HCC V28); Primary hypertension; Hypotension due to drugs from Last 3 Months Medical History Medical History Date Comments Morbid obesity (CMS/HCC V24, CMS/HCC V28) DX:Morbid obesity (HCC) UTI (urinary tract [...] Sign Reading Time Taken Comments Blood Pressure 122/64 02/22/2025 2:07 PM EDT Pulse 74 02/22/2025 2:07 PM EDT Temperature - - Respiratory Rate - - Oxygen Saturation 99% 02/22/2025 2:07 PM EDT Inhaled Oxygen Concentration - - Weight 89.8 kg (198 lb) 02/22/2025 2:07 PM EDT Height 167.6 cm (5' 6 ) 02/22/2025 2:07 PM EDT Body Mass Index 31.96 02/22/2025 2:07 PM EDT Plan of Treatment Upcoming Encounters Date Type Department Care Team (Late st Contact Info) Description 05/24/2025 8:50 AM EDT Office Visit [facility] - [facility] [address] [facility] [address] [place] [phone] Mac Oliveros MD [address] [place] [address] [place] [address] Health Maintenance Due Date Last Done Comments Cholesterol Screening (Lipid Panel) 07/12/2022 Falls Risk Assessment 07/12/2022 Medicare Annual Wellness Visit 07/12/2022 Social Influencers of Health Screening 07/12/2022 Hypertension/CHF/CAD Annual BMP Blood Test 06/11/2024 06/11/2023 Depression Screening 08/09/2024 COVID-19 Vaccine ( season) 2025 05/08/2024, 06/22/2023, 04/17/2022, Additional history exists Influenza Vaccine (#1) 2025 , 06/22/2023, 04/17/2022, Additional history exists DTaP,Tdap,and Td Vaccines (4 - Td or Tdap) 12/30/2034 12/30/2024, 05/20/2021, 04/27/2003 Hepatitis A Vaccines Aged Out 11/17/2017, 12/17/19 17 No longer eligible based on patient's age to complete this topic Zoster Vaccines Completed 07/20/2018, 12/01/2017 RSV Immunization Adult Patients Completed 07/10/2023 Pneumococcal Vaccine: 50+ Years Completed 12/30/2024, 06/05/2008 HIB Vaccines Aged Out No longer eligi [...] Procedure Name Priority Date/Time Associated Diagnosis Comments ECG 12-LEAD Routine 02/22/2025 3:17 PM EDT Chronic heart failure, unspecified heart failure type (CMS/HCC V24, CMS/HCC V28) ANNUAL BMP BLOOD TEST Routine 06/11/2023 from Last 3 Months or Most Recently Relevant to Health Maintenance Results * ECG 12 lead (02/22/2025 3:17 PM EDT) Ventricular Rate ECG 74 BPM GEMUSE Atrial Rate 79 BPM GEMUSE QRS Duration 112 ms GEMUSE Q-T Interval 410 ms GEMUSE QTc 455 ms GEMUSE R Mcclure 96 degrees GEMUSE T Mcclure -42 degrees GEMUSE ECG Interpretation Atrial fibrillation Septal infarct , age undetermined T wave abnormality, consider inferior ischemia When compared with ECG of 16-JUN-2024 08:58, No significant changes are noted Confirmed by MCKENZIE DELANEY ([id number]) on 03/02/2025 7:36:38 AM GEMUSE 02/22/2025 2:15 PM EDT 03/02/2025 7:36 AM EDT Angela Gutierrez LANDFILL ATTENDANT ECG ORDERABLES Edited Result - Final GEMUSE * Annual BMP Blood Test (06/11/2023) Pathologist [facility] Annual BMP Blood Test Abstracted Historical Provider HEALTH MAINTENANCE Final Result from Last 3 Months or Most Recently Relevant to Health Maintenance Insurance MEDICARE [facility] Advance Directives Documents on File Type Date Recorded Patient Clinical Product Specialist Expl anation Health Care Decision (hx) 01/30/2021 [...] (hx) 01/30/2021 AD ELIZABETH DIRECTIVE Care Teams Wood Tile Installation Helper Relationship Specialty Start Date End Date Yuri Melchor MD [address] [phone] PCP - General Internal Medicine 06/03/24
--- OUTSIDE RECORDS SUMMARY | 2025-04-16 10:35 | XMS_ITS | Encounter Summary ---
Author Organization [facility] Address [address] [facility] [address] [facility] [address] [place] [address] Phone Care Team Providers Care Painting Machine Operator Name Role Phone Yuri Melchor MD Primary Care Provider [phone] Encounter Details Date Type Department Care Team (Late st Contact Info) Description 06/17/2023 Procedure Pass [facility] [place] [address] [place] [address] Social History Tobacco Use Types [...] Description 05/22/2025 1:40 PM EDT Telemedicine [facility] [place] Department of Urology [address] [facility] [address] [facility], [address] [place] [address] Mohit Norman, PABeatriceC [address] [address] [email or web address] documented as of this encounter Visit Diagnoses Not on filedocumented in this encounter Care Teams Painting Machine Operator Relationship Specialty Start Date End Date Yuri Melchor MD [address] [address] PCP - General Internal Medicine 05/19/23 documented as of this encounter Additional Source Comments The information contained in this document represents components of the legal health record. It is not the complete legal health record.[facility]
== END 2025-04-16 10:11 | disposition home or self-care (01) ==
LOC: HO.HSMS 09:23
PROVIDERS: PCP Internal Medicine; Visit Provider Psychiatry & Neurology Neurology
DX: R26.89 Other abnormalities of gait and mobility (principal); G20.C Parkinsonism, unspecified; R06.83 Snoring
CPT/HCPCS: 99214

== ENCOUNTER → 2025-04-16 09:23 | Outpatient (BNVA) | payer MEDICARE, OTHER, SELFPAY | PROVIDERS: PCP Internal Medicine; Visit Provider Psychiatry & Neurology Neurology | DX: R26.89 Other abnormalities of gait and mobility (principal); G20.C Parkinsonism, unspecified; R06.83 Snoring; Z79.82 Long term (current) use of aspirin; R53.83 Other fatigue; F02.82 Dementia in other diseases classified elsewhere, unspecified severity, with psychotic disturbance | CPT/HCPCS: 99212 ==